=== PATIENT | male | born 1980 | race African-American/Black ===

== ENCOUNTER 2021-11-28 09:37 | Emergency (ER) | payer OTHER ==
[~2021-11-28] VITALS: Ht 162.6 cm; Wt 95.3 kg
[2021-11-28] MEDS ORDERED: SKELAGESIC PO (16:13)
[2021-11-28] MEDS ORDERED: ORPHENADRINE C100 MG PO (16:13)
== END 2021-11-28 16:41 ==
LOC: ER 09:37
DX: R07.89 Other chest pain (principal); M62.82 Rhabdomyolysis